=== PATIENT | male | born 1995 | race Caucasian/White ===

== ENCOUNTER → 2023-11-12 12:06 | Outpatient (CLI) | payer OTHER, SELFPAY ==
--- NOTE | 2023-11-12 12:09 | DI.RAD.S_ITS ---
PROCEDURE: FL SHOULDER INJECTION MR/CT LT INDICATIONS: superficial injury of lt shoulder COMPARISON: None. TECHNIQUE: The indications, alternatives, benefits, risks, and complications of the procedure were explained to the patient. Written informed consent was obtained and placed in the chart. The shoulder was examined fluoroscopically and a site for needle placement chosen for entry into the glenohumeral joint from an anterior approach. The skin was prepped and draped in a sterile fashion, and 1% lidocaine infiltrated from skin down to joint capsule. A spinal needle was inserted into the glenohumeral joint, and a small amount of iodinated contrast media injected to confirm intra-articular placement of the needle tip. This was followed by approximately 12 mL dilute solution of a gadolinium containing MR contrast agent. The needle was removed and a dressing was applied. The patient was given postprocedural instructions and sent to the MR suite for MR imaging. FINDINGS: A single fluoroscopic spot image demonstrates intra-articular location of injected iodinated contrast. IMPRESSION: Successful fluoroscopically guided administration of dilute Gadolinium solution into the left shoulder joint for MR arthrogram. Dictated by: Hardy Hunt M.D. on 11/12/2023 at 13:02 Approved by: Hardy Hunt M.D. on 11/12/2023 at 13:02
--- NOTE | 2023-11-12 12:32 | DI.MRI.S_ITS ---
PROCEDURE: MR SHOULDER LT W CON INDICATIONS: superficial injury of lt shoulder TECHNIQUE: After the administration of 12 mL of dilute intra-articular Gadolinium contrast, oblique coronal T1 and T2 spin echo with fat saturation, oblique sagittal T1 spin echo with and without fat saturation, oblique sagittal T2 fast spin echo with fat saturation, axial T1 spin echo with fat saturation through the shoulder. COMPARISON: None. FINDINGS: Image quality: Excellent. Rotator cuff: The supraspinatus, and the infraspinatus, are unremarkable. The tendon of the teres minor is intact. The subscapularis is intact. There is mild muscle edema the teres minor. No fatty atrophy. Bones and bursae: The acromioclavicular joint is unremarkable. Type 1 acromion. No os acromiale. Trace subacromial/subdeltoid bursitis. Mild subchondral cystic changes at the greater tuberosity, reactive. No acute fracture. There is flattening of the posterior superior humeral head, measuring 2.3 x 0.4 cm (length by depth), likely representing a chronic Hill-Sachs deformity. Suture anchors are seen in the glenoid. No focal chondral defect of the glenohumeral articulation. Capsule and soft tissues: Near circumferential labral tear, with relative sparing of the posterior labrum. The extra-articular biceps tendon is intact. The intra-articular biceps tendon is intact as well. Intra-articular contrast distends the glenohumeral joint. IMPRESSION: 1. Suture anchors in the glenoid. Chronic Hill-Sachs deformity. 2. Mild muscle edema of the teres minor. No rotator cuff tendon tear. 3. Near circumferential labral tear. Dictated by: Aure Wallace M.D. on 11/12/2023 at 14:31 Approved by: Aure Wallace M.D. on 11/12/2023 at 14:41
[2023-11-12] MEDS: LIDOCAINE 1% 20 ML INJ (14:11)
[2023-11-12] MEDS: SODIUM CHLORIDE 0.9 % 20 ML VIAL IV (14:12)
== END ==
DX: S40.912A Unspecified superficial injury of left shoulder, initial encounter (principal); X58.XXXA Exposure to other specified factors, initial encounter
CPT/HCPCS: 23350; 73040; 73222; A9579